=== PATIENT | female | born 1970 | race Caucasian/White ===

== ENCOUNTER 2017-07-03 10:04 | Emergency (ER) | payer MEDICAID ==
[~2017-07-03] VITALS: Ht 154.9 cm; Wt 72.0 kg
[2017-07-03] MEDS ORDERED: INSU100V3 SUBCUT (10:28)
[2017-07-03] MEDS ORDERED: METF850T2 PO (10:28)
[2017-07-03] MEDS ORDERED: IBUPROFEN 600MG TABLET PO ONE (11:00)
[2017-07-03 11:21] VITALS: BP 148/75
== END 2017-07-03 11:23 | disposition home or self-care (01) ==
LOC: ER 10:47
DX: J06.9 Acute upper respiratory infection, unspecified (principal); E11.9 Type 2 diabetes mellitus without complications; I10 Essential (primary) hypertension; Z79.4 Long term (current) use of insulin
CPT/HCPCS: 82962; 99283

== ENCOUNTER 2021-06-20 19:42 | Emergency (ER) | payer MEDICAID ==
[~2021-06-20] VITALS: Ht 154.9 cm; Wt 87.0 kg
[~2021-06-20 19:42] MED LIST: INSU100V3 SUBCUT; METF-415 PO
[2021-06-20] MEDS ORDERED: TETANUS, DIPHTHERIA, PERTUSSIS VAC/PF 0.5ML (>10YR OLD) IM ONE (20:45)
[2021-06-20] MEDS ORDERED: ONDANSETRON 4MG ODT PO ONE (20:45)
[2021-06-20] MEDS ORDERED: ACETAMINOPHEN 325MG TABLET PO ONE (20:45)
[2021-06-20] MEDS ORDERED: KETOROLAC 60MG/2ML VIAL IM ONE (23:00)
[2021-06-20 23:46] VITALS: BP 144/78
[2021-06-21] MEDS ORDERED: IBUP-2028 MT (00:07)
== END 2021-06-21 00:26 | disposition home or self-care (01) ==
LOC: ER 19:42
DX: S01.01XA Laceration without foreign body of scalp, initial encounter (principal); Y08.89XA Assault by other specified means, initial encounter; Y93.89 Activity, other specified; Y92.89 Other specified places as the place of occurrence of the external cause; Y99.8 Other external cause status; E11.9 Type 2 diabetes mellitus without complications; I10 Essential (primary) hypertension; Z98.890 Other specified postprocedural states
CPT/HCPCS: 70450; 71046; 72125; 90471; 90715; 96372; 99284; J1885; Q0162